=== PATIENT | female | born 1995 | race Caucasian/White ===

== ENCOUNTER 2016-09-05 05:20 | Emergency (ER) | payer OTHER ==
[~2016-09-05] VITALS: Ht 160 cm; Wt 63.5 kg
[~2016-09-05 05:20] MED LIST: NORFLEX100 MG PO; VOLTAREN75 MG PO
--- NOTE | 2016-09-05 05:24 | ED CARDIAC/CP/PALPITATIONS ---
History of Present Illness General Chief Complaint: Chest Pain Stated Complaint: CHEST PAIN Source: patient Exam Limitations: no limitations Vital Signs & Intake/Output Vital Signs & Intake/Output Vital Signs Date Time Temp Pulse Resp B/P Pulse O2 O2 Flow FiO2 Ox Delivery Rate 09/05 0659 97.2 82 18 110/62 98 Room Air 09/05 0550 98 Room Air 09/05 0537 100/60 09/05 0534 97.0 90 18 102/59 98 Room Air Allergies Coded Allergies: NO KNOWN ALLERGIES (05/11/11) Reconcile Medications Diclofenac Sodium (Voltaren) 75 MG ECT 1 TAB PO BID PRN PAIN Orphenadrine Citrate (Norflex) [address] 1 TAB PO BID PRN MUSCLE SPASMS Triage Nurses Notes Reviewed? yes Onset: Abrupt Duration: hour(s): (1) Timing: single episode today Quality/Severity: mild, moderate Location: central Radiation: TO BOTH SIDES OF CHEST Activities at Onset: none Associated Symptoms: NAUSEA HPI: This is a 19-year-old female presents to the ER chief complaint of sudden onset of chest pain after waking up this morning to go to work. She states that it is both on the left and right side of her chest. She does feel short of breath with it denies any recent upper symptoms. No fever or chills. No sore throat. She is not on any oral contraceptive pills. She initially thought that she had some acid reflux last night before when a bed she felt discomfort but then went away. This morning she woke up feeling worse and states that she couldn't go to work this way. Denies any recent travel or immobilization. No significant past family history except for father with diabetes. Past History Travel History Traveled to [place] past 21 day No Medical History Any Pertinent Medical History? see below for history Musculoskeletal: LYME Surgical History Surgical History: none Psychosocial History What is your primary language French Tobacco Use: Current Daily Use Family History Comment: Father with diabetes Hx Contributory? No Review of Systems Review of Systems Constitutional: Denies: chills, fever. EENTM: Reports: no symptoms. Respiratory: Reports: short of breath. Denies: cough, sputum production. Cardiovascular: Reports: chest pain. GI: Reports: nausea. Denies: abdominal pain, vomiting. Genitourinary: Reports: no symptoms. Musculoskeletal: Reports: no symptoms. Skin: Reports: no symptoms. Neurological/Psychological: Reports: anxiety. Hematologic/Endocrine: Denies: bruising, bleeding, polyuria, polydipsia. Immunologic/Allergic: Reports: no symptoms. All Other Systems: Reviewed and Negative Physical Exam Physical Exam General Appearance: well developed/nourished, alert, awake, anxious, mild distress, moderate distress Head: atraumatic, normal appearance Eyes: Bilateral: normal appearance, PERRL, EOMI. Ears, Nose, Throat: normal pharynx, hearing grossly normal Neck: normal inspection, supple, full range of motion Respiratory: normal breath sounds, no respiratory distress, TENDER LEFT CHEST WALL Cardiovascular: regular rate/rhythm Peripheral Pulses: 2+ radial (R), 2+ radial (L) Gastrointestinal: normal bowel sounds, soft, non-tender Core Measures ACS in differential dx? Yes ASA ordered for poss ACS? No-ACS ruled out Severe Sepsis Present: No Septic Shock Present: No Progress Differential Diagnosis: AMI, costochondritis, musculoskeletal pain, myocarditis, pericarditis, pneumonia, pneumothorax, pulmonary embolism Plan of Care: Orders Procedure Date/time Status URINE 09/05 528 Complete EKG 09/05 0524 Active Current Medications Sig/Elbert Start time Last Medication Dose Stop Time Status Admin Ibuprofen 800 MG ONCE ONE 09/05 0600 CAN (Motrin) 09/05 0601 Laboratory Tests 09/05/16 0557: Urine Test NEGATIVE 6:15 AM MUCH IMPROVED AFTER GI COCKTAIL. XRAY PENDING. XRAY NEGATIVE. PATIENT TO FOLLOW UP WITH PCP. (CYRUS NIX,LINDA) Diagnostic Imaging: Viewed by Me: Radiology Read. Discussed w/RAD: Radiology Read. CXR Impression: no acute abnormality, no infiltrates Initial ED EKG: NSR, sinus arrhythmia Departure Departure Time of Disposition: 638 Disposition: HOME OR SELF CARE Condition: Stable Clinical Impression Primary Impression: Dyspepsia Referrals: GERALD LUQUE APRN (PCP/Family) Additional Instructions: TAKE PEPCID OVER THE COUNTER DIRECTED. FOLLOW UP WITH YOUR DOCTOR IN THE OFFICE. RETURN TO THE ER NEEDED. Departure Forms: Customer Survey General Discharge Information Critical Care Note Critical Care Note Critical Care Time: non-applicable
[2016-09-05 06:59] VITALS: BP 110/62
--- NOTE | 2016-09-05 07:21 | RADIOLOGY REPORT ---
EXAMINATION: XR CHEST CLINICAL INFORMATION: Left-sided chest pain. Shortness of breath. COMPARISON: Chest radiograph 06/17/2011. TECHNIQUE: 2 views of the chest were obtained. FINDINGS: Lungs are well-expanded and there is no focal consolidative disease, pleural effusion, or pneumothorax. The cardiac silhouette and upper mediastinal contours are normal. No acute osseous finding. IMPRESSION: Unremarkable chest radiograph. No consolidative disease or effusion.
== END 2016-09-05 07:02 ==
LOC: ERH 05:20
DX: R10.13 Epigastric pain (principal)
CPT/HCPCS: 81025; 93005; 93010

== ENCOUNTER 2017-09-21 13:50 | Emergency (ER) | payer OTHER ==
[~2017-09-21] VITALS: Ht 160 cm; Wt 68.0 kg
[2017-09-21 13:59] VITALS: BP 108/73
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
[2017-09-21] MEDS ORDERED: CYCLOBENZAPRINE5 M2 PO (14:15)
== END 2017-09-21 14:36 ==
LOC: ERH 13:50
DX: S39.012A Strain of muscle, fascia and tendon of lower back, initial encounter (principal); V43.52XA Car driver injured in collision with other type car in traffic accident, initial encounter; Y92.9 Unspecified place or not applicable